=== PATIENT | female | born 1985 | race American Indian/Alaskan Native ===

== ENCOUNTER 2017-03-26 14:08 | Emergency (ER) | payer SELFPAY ==
[2017-03-26 14:14] VITALS: BP 150/91
--- NOTE | 2017-03-26 18:08 | Emergency Department Report ---
ED ENT HPI - General Chief complaint: Eye Problems Stated complaint: SWOLLEN EYES Time Seen by Provider: 03/26/17 17:34 Source: patient Mode of arrival: Ambulatory Limitations: No Limitations - History of Present Illness Initial comments: PT c/o swelling around her eyes since Saturday. PT states she went to and was tested for HIV. PT states she was giving a cream for her face. PT states no improvement. PT states she has no new environmental exposures, however, she did have false lashes placed on Sat. PT states she is unsure if the lash glue or lash material changed. PT states she has been having her lashes applied at the same place x 1 year. PT states she does have some itching around her eyes. PT denies hx of allergies. PT is currently not on any medication daily. MD complaint: other (swelling and rash ) -: Gradual (5), days(s) Location: other (face) Quality: constant, other (itchy) Consistency: constant Improves with: none Worsens with: none Associated Symptoms: denies: fever, cough, gum swelling, toothache, pain with swallowing, sore throat, tinnitus, hearing loss, discharge from ear, rhinorrhea - Related Data Previous Rx's Medication Instructions Recorded Last Taken Type Cetirizine HCl [Allergy Relief] 10 mg PO DAILY #10 tablet 03/26/17 Unknown Rx predniSONE [Deltasone] 40 mg PO QDAY #6 tab 03/26/17 Unknown Rx Allergies Allergy/AdvReac Type Severity Reaction Status Date / Time No Known Allergies Allergy Unverified 03/02/15 21:24 ED Dental HPI - General Chief complaint: Eye Problems Stated complaint: SWOLLEN EYES Time Seen by Provider: 03/26/17 17:34 Source: patient Mode of arrival: Ambulatory Limitations: No Limitations - Related Data Previous Rx's Medication Instructions Recorded Last Taken Type Cetirizine HCl [Allergy Relief] 10 mg PO DAILY #10 tablet 03/26/17 Unknown Rx predniSONE [Deltasone] 40 mg PO QDAY #6 tab 03/26/17 Unknown Rx Allergies Allergy/AdvReac Type Severity Reaction Status Date / Time No Known Allergies Allergy Unverified 03/02/15 21:24 ED Review of Systems ROS: Stated complaint: SWOLLEN EYES Other details as noted in HPI Comment: All other systems reviewed and negative Constitutional: denies: see HPI, fever Eyes: other (denies redness ). denies: eye pain, eye discharge, vision change ENT: as per HPI, other (pt c/o R ear feeling intermittently "stopped up" x 1 year) Respiratory: denies: cough, shortness of breath Skin: rash (around eyes ) Psychiatric: anxiety (pt states she has no medical hx and she was very upset to have rash and swelling on face ) ED Past Medical Hx - Past Medical History Previous Medical History?: No Hx Hypertension: No - Surgical History Past Surgical History?: No - Family History Family history: no significant - Social History Smoking Status: Current Some Day Smoker Substance Use Type: Marijuana, Non Opiate Pain - Medications Home Medications: Home Medications Medication Instructions Recorded Confirmed Last Taken Type Cetirizine HCl [Allergy Relief] 10 mg PO DAILY #10 tablet 03/26/17 Unknown Rx predniSONE [Deltasone] 40 mg PO QDAY #6 tab 03/26/17 Unknown Rx ED Physical Exam - General Limitations: No Limitations General appearance: alert, in no apparent distress - Head Head exam: Present: atraumatic, normocephalic - Expanded Head Exam Expanded Head exam: Present: other (rash to face ). Absent: contusion, hematoma, racoon eyes, hoffman's sign - Eye Eye exam: Present: normal appearance, PERRL, EOMI. Absent: conjunctival injection, nystagmus, periorbital swelling, periorbital tenderness Pupils: Present: normal accommodation - ENT ENT exam: Present: normal exam, normal orophraynx, mucous membranes moist, TM's normal bilaterally, normal external ear exam - Neck Neck exam: Present: normal inspection, full ROM. Absent: tenderness - Respiratory Respiratory exam: Present: normal lung sounds bilaterally. Absent: respiratory distress - Cardiovascular Cardiovascular Exam: Present: regular rate, normal rhythm - Extremities Exam Extremities exam: Present: normal inspection, full ROM - Back Exam Back exam: Present: normal inspection, full ROM. Absent: tenderness - Neurological Exam Neurological exam: Present: alert, oriented X3 - Psychiatric Psychiatric exam: Present: normal affect, normal mood - Skin Skin exam: Present: warm, dry, intact, erythema (Rash noted to face, over mandible, andrea, no warmth, no tenderness ) ED Course Vital Signs 03/26/17 14:09 Temperature 98.5 F Pulse Rate 78 Respiratory 20 Rate Blood Pressure 150/91 O2 Sat by Pulse 100 Oximetry - Reevaluation(s) Reevaluation #1: 03/26/17 18:14 PT aware that rash may be do to the products used to apply false lashes (tape, glue, lashes). PT advised to follow up to see if new products used. PT advised to avoid future contact with possible offending agents. PT verbalizes understanding. PT has no questions at this time. PT also aware that she will need to follow up with PCP to have her bp rechecked. - Pulse Oximetry Interpretation Digit-Finger Initial Pulse Oximetry Readin Actions Taken: none ED Medical Decision Making - Differential Diagnosis contact dermatitis, urticaria, blepharitis Critical care attestation.: If time is entered above; I have spent that time in minutes in the direct care of this critically ill patient, excluding procedure time. ED Disposition Clinical Impression: Rash and nonspecific skin eruption Disposition: DISCHARGED TO HOME OR SELFCARE Is pt being admited?: No Does the pt Need Aspirin: No Condition: Stable Instructions: Contact Dermatitis (ED), Acute Rash (ED) Additional Instructions: Avoid possible environmental exposures use hypoallergenic products return to the ED if worsening or concerns Follow up with PCP in 3-5 days, your may need dermatology or life skills coordinator volunteer referral and your pcp can help you with that Prescriptions: Cetirizine HCl [Allergy Relief] 10 mg PO DAILY #10 tablet predniSONE [Deltasone] 40 mg PO QDAY #6 tab Referrals: PRIMARY CAREMD [Primary Care Provider] - 3-5 Days DERECK GRANADOS MD [Staff Physician] - 3-5 Days [facility] [Outside] - 3-5 Days Time of Disposition: 18:18
== END 2017-03-26 18:25 | disposition home or self-care (01) ==
LOC: ED 14:08
DX: R21 Rash and other nonspecific skin eruption (principal); F17.200 Nicotine dependence, unspecified, uncomplicated; F12.10 Cannabis abuse, uncomplicated
CPT/HCPCS: 99282

== ENCOUNTER 2018-01-13 12:52 | Emergency (ER) | payer SELFPAY ==
[2018-01-13 13:04] VITALS: BP 136/91
[2018-01-13] MEDS ORDERED: TORADOL IM ONE (16:59)
[2018-01-13 17:24] LABS: Basophils # (Auto) 0.1 K/mm3 (0.0-0.1); Basophils % (Auto) 1.1 % (0.0-1.8); Hematocrit 39.8 % (30.3-42.9); Hemoglobin 13.4 gm/dl (10.1-14.3); Lymphocytes # (Auto) 1.5 K/mm3 (1.2-5.4); Lymphocytes % (Auto) 30.8 % (13.4-35.0); Mean Corpuscular HGB Conc 34 % (30-34); Mean Corpuscular Hemoglobin 30 pg (28-32); Mean Corpuscular Volume 90 fl (79-97); Monocytes # (Auto) 0.4 K/mm3 (0.0-0.8); Monocytes % (Auto) 8.1 % (0.0-7.3); Platelet Count 279 K/mm3 (140-440); Red Blood Count 4.41 M/mm3 (3.65-5.03); Red Cell Distribution Width 14.3 % (13.2-15.2)
[2018-01-13 17:59] LABS: Erythrocyte Sedimentation Rate 15 mm/Hr (0-20)
[2018-01-13 18:03] LABS: BUN/Creatinine Ratio 14; Blood Urea Nitrogen 10 mg/dL (7-17); Calcium 9.4 mg/dL (8.4-10.2); Hemolysis Index 6
--- NOTE | 2018-01-13 18:34 | Emergency Department Report ---
ED Rash HPI - HPI Chief Complaint: Skin Rash Stated Complaint: RASH ON FACE AND BACK PAIN Time Seen by Provider: 01/13/18 16:28 Rash Symptoms: Yes Itching, No Facial Swelling, No Tongue/Oral Swelling, No Breathing Difficulties, No Choking Sensation, No Wheezing/Dyspnea, No Peeling, No Blistering, No Fever, No Lightheaded, No Malaise, No Myalgias Severity: moderate Other History: 32-year-old female past medical history none presents with intermittent complaint of intermittent rash on face for over one year. Patient is concerned that she may have lupus. Denies fever chills nausea vomiting headache blurry vision. Denies any unilateral headache denies any body aches or myalgias. Denies any personal family history of inflammatory conditions like lupus or sarcoidosis or rheumatoid arthritis. Patient was screened by Dr. Dougherty earlier. Patient is requesting blood testing due to her concern. Has not followed up as an outpatient and does not currently have a primary care doctor. ED Review of Systems ROS: Stated complaint: RASH ON FACE AND BACK PAIN Other details as noted in HPI Constitutional: denies: chills, fever Eyes: denies: eye pain, eye discharge, vision change ENT: denies: ear pain, throat pain Respiratory: denies: cough, shortness of breath, wheezing Cardiovascular: denies: chest pain, palpitations Endocrine: no symptoms reported Gastrointestinal: denies: abdominal pain, nausea, diarrhea Genitourinary: denies: urgency, dysuria, discharge Musculoskeletal: denies: back pain, joint swelling, arthralgia Skin: as per HPI (as per patient intermittent red rash on face for over one year ). denies: rash, lesions Neurological: denies: headache, weakness, paresthesias Psychiatric: denies: anxiety, depression Hematological/Lymphatic: denies: easy bleeding, easy bruising ED Past Medical Hx - Past Medical History Previous Medical History?: No Hx Hypertension: No - Surgical History Past Surgical History?: No - Social History Smoking Status: Never Smoker Substance Use Type: None - Medications Home Medications: Home Medications Medication Instructions Recorded Confirmed Last Taken Type Cetirizine HCl [Allergy Relief] 10 mg PO DAILY #10 tablet 03/26/17 Unknown Rx predniSONE [Deltasone] 40 mg PO QDAY #6 tab 03/26/17 Unknown Rx Ibuprofen [Motrin] 800 mg PO Q8HR PRN #30 tablet 01/13/18 Unknown Rx Loratadine [Claritin] 10 mg PO DAILY #14 tablet 01/13/18 Unknown Rx Salicylic Acid [Acne Cleanser] 1 applicatio TP QDAY #1 cleanser 01/13/18 Unknown Rx Rash Exam - Exam General: Vital signs noted. No distress. Alert and acting appropriately. HEENT: No Periorbital Edema, No Conjuctival Injection, No Chemosis, No Perioral Edema, No Tongue Edema, No Uvular Edema, No Compromised Airway, No Drooling Lungs: Yes Good Air Exchange (Normal Breath Sounds), No Wheezes, No Ronchi, No Stridor, No Cough, No Labored Respirations, No Retractions, No Use of Accessory Muscles, No Other Abnormal Lung Sounds Heart: Yes Regular, No Murmur Other: Positive: Abdomen Normal, Neurologic Normal, Musculoskeletal Normal ED Course Vital Signs 01/13/18 01/13/18 13:01 17:14 Temperature 97.5 F L Pulse Rate 68 Respiratory 18 16 Rate Blood Pressure 136/91 O2 Sat by Pulse 100 Oximetry ED Medical Decision Making - Lab Data Result diagrams: 01/13/18 17:05 01/13/18 17:32 - Medical Decision Making A/P: Concern for facial rash 1- BMP unremarkable, CBC unremarkable. Dr. Dougherty not explain to patient they're many things that can cause facial rash. It is unlikely that she is exhibiting signs of systemic or cutaneous lupus at this time. We also informed patient that she needs to have outpatient testing not an indication to do so at this time in the ED she is clinically stable with normal vital signs and unremarkable CBC with BMP which can reflect markers of inflammation. 2- referral to primary care dermatology and rheumatology. I provided patient with information on clinics for all of these 3- Motrin when necessary, topical salicylic acid, antihistamine Critical care attestation.: If time is entered above; I have spent that time in minutes in the direct care of this critically ill patient, excluding procedure time. ED Disposition Clinical Impression: Facial rash, Anxiety about health Disposition: DC- TO HOME OR SELFCARE Is pt being admited?: No Does the pt Need Aspirin: No Condition: Stable Instructions: Acute Rash (ED) Prescriptions: Ibuprofen [Motrin] 800 mg PO Q8HR PRN #30 tablet PRN Reason: Pain Loratadine [Claritin] 10 mg PO DAILY #14 tablet Salicylic Acid [Acne Cleanser] 1 applicatio TP QDAY #1 cleanser Referrals: PRIMARY CARE, [Primary Care Provider] - 3-5 Days [facility] [Provider Group] - 3-5 Days [facility] [Outside] - 3-5 Days Forms: Work/School Release Form(ED) Time of Disposition: 18:33
== END 2018-01-13 18:53 | disposition home or self-care (01) ==
LOC: ED 12:52
DX: R21 Rash and other nonspecific skin eruption (principal); M54.9 Dorsalgia, unspecified
CPT/HCPCS: 36415; 80048; 82550; 84703; 85025; 85652; 96372; 99283; J1885

== ENCOUNTER 2019-10-03 15:01 | Emergency (ER) | payer OTHER ==
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
[2019-10-03] MEDS ORDERED: HYDROcodone/ACETAMINOPHEN 5-325 MG TAB PO ONE (21:35)
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
[2019-10-03] MEDS ORDERED: CYCLOBENZAPRINE 10 MG TAB PO ONE (21:51)
[2019-10-03] MEDS: HYDROcodone/ACETAMINOPHEN 5-325 MG TAB PO ONE ×2 (22:15→23:40)
[2019-10-03 23:55] VITALS: BP 127/81
== END 2019-10-03 23:00 | disposition home or self-care (01) ==
LOC: ED 15:01
DX: S39.012A Strain of muscle, fascia and tendon of lower back, initial encounter (principal); M62.830 Muscle spasm of back; M79.10 Myalgia, unspecified site; V49.49XA Driver injured in collision with other motor vehicles in traffic accident, initial encounter; Y93.89 Activity, other specified; Y92.410 Unspecified street and highway as the place of occurrence of the external cause; Y99.8 Other external cause status
CPT/HCPCS: 72100